=== PATIENT | male | born 1985 | race American Indian/Alaskan Native ===

== ENCOUNTER 2017-03-23 20:04 | Emergency (ER) | payer OTHER ==
[2017-03-23 20:04] VITALS: BMI 33.3
[2017-03-23 20:34] VITALS: TEMP 98.2
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
[2017-03-23] MEDS ORDERED: DiphenhydrAMINE 50 mg/ml Inj IM STA (22:39)
[2017-03-24 00:44] LABS: BASO # 0.06 K/mm3 (0.0-2.0); BASO % 0.8 % (0.0-3.0); EOS # 0.2 (0.0-0.7); GRAN # 4.6 (1.4-6.5); GRAN % 60.6 % (50.0-68.0); HEMATOCRIT 38.8 % (42.0-52.0); LYMPH # 2.1 (1.2-3.4); LYMPH % 28.2 % (22.0-35.0); MEAN CELL VOLUME 87.8 fl (80.0-105.0); MEAN CORPUSCULAR HEMOGLOBIN 29.6 pg (25.0-35.0); MEAN CORPUSCULAR HGB CONC 33.8 g/dl (31.0-37.0); MEAN PLATELET VOLUME 8.6 fl (7.0-11.0); MONO # 0.6 (0.1-0.6); MONO % 8.4 % (1.0-6.0); RED CELL DISTRIBUTION WIDTH 14.6 % (11.5-14.5)
[2017-03-24 00:49] LABS: ALB/GLOB RATIO 1.1 (1.1-1.8); ALKALINE PHOSPHATASE 81 U/L (38-126); ALT/SGPT 31 U/L (7-56); AST/SGOT 37 U/L (17-59); BILIRUBIN,TOTAL 0.7 mg/dL (0.2-1.3); BLOOD UREA NITROGEN 12 mg/dL (7-21); CALCIUM 9.1 mg/dL (8.4-10.5); CARBON DIOXIDE 29 mmol/L (21-33); CHLORIDE 102 mmol/L (95-110); GFR AFRICAN-AMERICAN > 60; GLUCOSE,RANDOM 79 mg/dL (70-110); POTASSIUM 3.4 mmol/L (3.6-5.0); SODIUM 139 mmol/L (132-148); TOTAL PROTEIN 7.4 g/dL (5.8-8.3)
[2017-03-24 00:50] LABS: WHITE BLOOD COUNT 7.6 10^3/ul (4.5-11.0)
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
--- NOTE | 2017-03-24 08:53 | RAD ---
HISTORY: med clearence COMPARISON: 07/15/2015 FINDINGS: LUNGS: No active pulmonary disease. PLEURA: No significant pleural effusion identified, no pneumothorax apparent. CARDIOVASCULAR: Normal. OSSEOUS STRUCTURES: No significant abnormalities. VISUALIZED UPPER ABDOMEN: Normal. OTHER FINDINGS: None. IMPRESSION: No active disease.
--- NOTE | 2017-03-24 09:13 | ED PDOC ---
Physical Exam Vital Signs Temp Pulse Resp BP Pulse Ox 03/24/17 06:59 74 99 H 114/80 100 03/24/17 00:04 78 99 H 108/78 100 03/23/17 20:29 98.2 F 72 18 126/64 99 Medical Decision Making ED Course and Treatment: 03/24/17 07:[address] Rodriguez to ma, and patient will follow-up with PES screening 03/24/17 13:35 Patient was evaluated by GRADY Gregorio who states she reviewed the case with the Psychiatrist and they agree that patient can be discharged in police custody. They have set her up with follow up with [facility]. - Lab Interpretations Lab Results: 03/24/17 00:14 03/24/17 00:14 Lab Results 03/24/17 00:14: Alcohol, Quantitative < 10 03/24/17 00:14: Salicylates < 1 L, Acetaminophen < 10.0 L 03/24/17 00:14: Sodium 139, Potassium 3.4 L, Chloride 102, Carbon Dioxide 29, Anion Gap 11, BUN 12, Creatinine 0.8, Est GFR ( Amer) > 60, Est GFR (Non- Af Amer) > 60, Random Glucose 79, Calcium 9.1, Total Bilirubin 0.7, AST 37, ALT 31, Alkaline Phosphatase 81, Total Protein 7.4, Albumin 3.9, Globulin 3.5, Albumin/Globulin Ratio 1.1 03/24/17 00:14: WBC 7.6 D, RBC 4.42, Hgb 13.1 L, Hct 38.8 L, MCV 87.8, MCH 29.6 , MCHC 33.8, RDW 14.6 H, Plt Count 305, MPV 8.6, Gran % 60.6, Lymph % (Auto) 28.2, [place] % (Auto) 8.4 H, Eos % (Auto) 2.0, Baso % (Auto) 0.8, Gran # 4.60, Lymph # 2.1, [place] # 0.6, Eos # 0.2, Baso # 0.06 - RAD Interpretation Radiology Orders: 03/23/17 21:15 HEAD W/O CONTRAST [CT] Stat 03/23/17 21:16 CHEST PORTABLE [RAD] Stat - Medication Orders Current Medication Orders: Discontinued Medications Diphenhydramine HCl (Benadryl) 50 mg IM STAT STA Stop: 03/23/17 22:40 Last Admin: 03/23/17 23:30 Dose: 50 mg Haloperidol Lactate (Haldol) 5 mg IM STAT STA Stop: 03/23/17 22:40 Last Admin: 03/23/17 23:30 Dose: 5 mg Lorazepam (Ativan) 2 mg IM ONCE ONE Stop: 03/23/17 22:40 Last Admin: 03/23/17 23:30 Dose: 2 mg Disposition/Present on Arrival - Present on Arrival Any Indicators Present on Arrival: No History of DVT/PE: No History of Uncontrolled Diabetes: No Urinary Catheter: No History of Decub. Ulcer: No History Surgical Site Infection Following: None - Disposition Have Diagnosis and Disposition been Completed?: Yes Diagnosis: Psychiatric care, Aggressive behavior Disposition: HOME/ ROUTINE Disposition Time: 13:30 Patient Plan: Discharge Condition: IMPROVED Discharge Instructions (ExitCare): Medical Clearance for Psychiatric Care (ED) Additional Instructions: Jef, thank you for letting us take care of you today. Your provider was Dr. Young. You were treated for Psych. The emergency medical care you received today was directed at your acute symptoms. If you were prescribed any medication, please fill it and take as directed. It may take several days for your symptoms to resolve. Return to the Emergency Department if your symptoms worsen, do not improve, or if you have any other problems. Please contact your doctor or call one of the physicians/clinics you have been referred to that are listed on the Patient Visit Information form that is included in your discharge packet. Bring any paperwork you were given at discharge with you along with any medications you are taking to your follow up visit. Our treatment cannot replace ongoing medical care by a primary care provider (PCP) outside of the emergency department. PATIENT IS MEDICALLY CLEARED FOR DISCHARGE WITH POLICE FOR INCARCERATION Thank you for allowing the [facility] team to be part of your care today. If you had an X-Ray or CT scan: A Radiologist will review the ED reading if any change in treatment is needed we will contact you. If you had a blood, urine, or wound culture: It will take several days for the results, if any change in treatment is needed we will contact you. If you had an STI test: It will take 48 hours for the results. Please call after 1 week if you have not heard back. Referrals: PCP,NO [Primary Care Provider] - Follow up with primary Forms: [employer] (Peruvian)
[2017-03-24 13:48] VITALS: BP 121/74; PULSE 54; RESP 16; O2SAT 98
== END 2017-03-24 13:35 | disposition home or self-care (01) ==
LOC: ED 20:04
DX: F91.9 Conduct disorder, unspecified (principal)
CPT/HCPCS: 70450; 71010; 80053; 85025; 90791; 96372; 99284; G0480; J1200; J1630; J2060

== ENCOUNTER 2017-10-16 17:46 | Emergency (ER) | payer MEDICAID, OTHER ==
[2017-10-16] MEDS ORDERED: Tmp-Smz 800 mg-160 mg DS Tab PO STA (18:08)
--- NOTE | 2017-10-16 18:16 | ED PDOC ---
Arrival/HPI - General Chief Complaint: Wound Check Time Seen by Provider: 10/16/17 17:53 Historian: Patient EM Caveat: Uncooperative, Psychotic - History of Present Illness Narrative History of Present Illness (Text): 10/16/17 18:12 Patient is a 32 year old male, with a past psychiatric history of schizophrenia and homeless, who presents today with "a hole in his head". Pt is not a good historian and is known to be very uncooperative and aggressive with ER staff. Pt states he just wants relief for the painful bumps on his head. Denies fever, chest pain, shortness of breath, nausea, vomiting, diarrhea, or any other complaints at this time Time/Duration: Prior to Arrival Symptom Onset: Gradual Symptom Course: Unchanged Quality: Pressure Severity Level: 5 Activities at Onset: Rest Context: Street Past Medical History - Provider Review Nursing Documentation Reviewed: Yes - Travel History Have you recently traveled outside [place] w/in the past 3 mons?: No - Infectious Disease Hx of Infectious Diseases: None - Cardiac Hx Hypertension: No - Pulmonary Hx Tuberculosis: No - Neurological Hx Seizures: No - Hematological/Oncological Hx Cancer: No - Genitourinary/Gynecological Hx Sexually Transmitted Diseases: No - Psychiatric Hx Schizophrenia: Yes Hx Substance Use: No - Surgical History Other/Comment: STITCHES ON NOSE/ HEAD - DONT REMEMBER ANY SUGERY - Anesthesia Hx Anesthesia: Yes Hx Anesthesia Reactions: No Hx Malignant Hyperthermia: No Family/Social History - Physician Review Nursing Documentation Reviewed: Yes Family/Social History: Unknown Family HX Smoking Status: Current Some Days Smoker Hx Alcohol Use: Yes Hx Substance Use: No Allergies/Home Meds Allergies/Adverse Reactions: Allergies No Known Allergies Allergy (Verified 10/13/17 23:09) Review of Systems - Review of Systems Constitutional: Normal Eyes: Normal ENT: Normal Respiratory: Normal Cardiovascular: Normal Gastrointestinal: Normal Genitourinary Male: Normal Musculoskeletal: Normal Skin: Normal, Skin Lesions (multiple cysts on the scalp) Neurological: Normal Endocrine: Normal Hemo/Lymphatic: Normal Psychiatric: Normal Physical Exam Vital Signs Reviewed: Yes Vital Signs Temp Pulse Resp BP Pulse Ox 10/16/17 19:40 98.9 F 95 H 18 152/78 H 98 10/16/17 18:01 99.3 F 98 H 18 149/82 99 Temperature: Afebrile Blood Pressure: Normal Pulse: Regular Respiratory Rate: Normal Appearance: Positive for: Non-Toxic, Comfortable, Unkept Pain Distress: Moderate Mental Status: Positive for: Alert and Oriented X 3 - Systems Exam Head: Present: Atraumatic, Normocephalic, Tenderness (multiple scalp cysts, varying in size) Pupils: Present: PERRL Extroacular Muscles: Present: EOMI Conjunctiva: Present: Normal Mouth: Present: Moist Mucous Membranes Neck: Present: Normal Range of Motion Respiratory/Chest: Present: Clear to Auscultation, Good Air Exchange. No: Respiratory Distress, Accessory Muscle Use Cardiovascular: Present: Regular Rate and Rhythm, Normal S1, S2. No: Murmurs Abdomen: Present: Normal Bowel Sounds. No: Tenderness, Distention, Peritoneal Signs Back: Present: Normal Inspection Upper Extremity: Present: Normal Inspection. No: Cyanosis, Edema Lower Extremity: Present: Normal Inspection. No: Edema Neurological: Present: GCS=15, CN II-XII Intact, Speech Normal, Motor Func Grossly Intact, Normal Sensory Function Skin: Present: Warm, Dry, Normal Color, Abscess (multiple scalp lesions; non- fluctuant but tender to palpation). No: Rashes Lymphatic: No: Cervical Adenopathy, Axillary Adenopathy, Inguinal Adenopathy, Other Psychiatric: Present: Alert, Oriented x 3, Normal Insight, Normal Concentration , Normal Affect, Normal Mood, Agitated Medical Decision Making ED Course and Treatment: 10/16/17 18:16 Impression Patient is a 32 year old male, with a past psychiatric history of schizophrenia , who presents today with "a hole in his head". On exam, there are multiple cysts, non-fluctuant on the scalp with moderate- severe pain on palpation. Pt is unkempt and uncooperative and demanding during exam Plan Bactrim DS PO STAT pain management assess and dispo Progress Note Pt received Bactrim DS PO STAT Toradol 60 mg IM Pt rested and was stable for DC Bactrim DS PO x 5 days given - Medication Orders Current Medication Orders: Discontinued Medications Ketorolac Tromethamine (Toradol) 30 mg IM STAT STA Stop: 10/16/17 18:22 Last Admin: 10/16/17 18:34 Dose: Ketorolac Tromethamine (Toradol) 30 mg IM STAT STA Stop: 10/16/17 18:36 Last Admin: 10/16/17 18:42 Dose: Not Given Non-Admin Reason: Patient Refused Trimethoprim/Sulfamethoxazole (Bactrim Ds Tab) 1 tab PO STAT STA PRN Reason: Protocol Stop: 10/16/17 18:09 Last Admin: 10/16/17 18:41 Dose: 1 tab Disposition/Present on Arrival - Present on Arrival Any Indicators Present on Arrival: Yes History of DVT/PE: No History of Uncontrolled Diabetes: No Urinary Catheter: No History of Decub. Ulcer: No History Surgical Site Infection Following: None - Disposition Have Diagnosis and Disposition been Completed?: Yes Diagnosis: Scalp abscess Disposition: HOME/ ROUTINE Disposition Time: 18:41 Patient Plan: Discharge Condition: STABLE Discharge Instructions (ExitCare): Boil Additional Instructions: Efrain, thank you for letting us take care of you today. Your provider was BENNIE Redmond. You were treated for multiple scalp abscesses. The emergency medical care you received today was directed at your acute symptoms. If you were prescribed any medication, please fill it and take as directed. It may take several days for your symptoms to resolve. Return to the Emergency Department if your symptoms worsen, do not improve, or if you have any other problems. Please contact your doctor or call one of the physicians/clinics you have been referred to that are listed on the Patient Visit Information form that is included in your discharge packet. Bring any paperwork you were given at discharge with you along with any medications you are taking to your follow up visit. Our treatment cannot replace ongoing medical care by a primary care provider (PCP) outside of the emergency department. [facility] care today. Prescriptions: Sulfamethoxazole/Trimethoprim [Bactrim DS 800 mg-160 mg] 1 tab PO Q12 5 Days # 10 tab Referrals: Elmira Celis, [Primary Care Provider] - Follow up with primary [facility] [Outside] - Follow up with primary Forms: [employer] (Kyrgyz)
[2017-10-16 18:23] VITALS: RESP 18; BMI 30.9
[2017-10-16 19:41] VITALS: BP 152/78; PULSE 95; TEMP 98.9; O2SAT 98
== END 2017-10-16 19:41 | disposition home or self-care (01) ==
LOC: ED 17:46
DX: L02.811 Cutaneous abscess of head [any part, except face] (principal)

== ENCOUNTER 2017-11-15 13:16 | Emergency (ER) | payer MEDICAID, OTHER ==
[2017-11-15 13:17] VITALS: BMI 33.3
--- NOTE | 2017-11-15 14:11 | ED PDOC ---
Arrival/HPI - General Chief Complaint: Psychiatric Evaluation Time Seen by Provider: 11/15/17 14:06 Historian: Patient, Police - History of Present Illness Narrative History of Present Illness (Text): 11/15/17 14:09 pt p/w + altered behavior, was found wandering in the streets and taking his cloths off; pt states he was just walking back to the half-way?; pt Denied SI/HI , pt denied hallucinations - visual/tactile/auditory; pt states he is just very tired/fatigued; pt states he is weak; pt states no fever/chills/sweats, no cp/ sob/palpitations, no abd pain, no n/v, no numbness/tingling, no urinary/bowel changes, no fall/trauma/sick contact, no shock absorption floor layer denied other complaints pt is here for further eval. PCP: unknown?none? pt with prior psych hx Time/Duration: Prior to Arrival Symptom Onset: Sudden Symptom Course: Unchanged Activities at Onset: Rest Context: Walking Past Medical History - Provider Review Nursing Documentation Reviewed: Yes - Travel History Have you recently traveled outside [place] w/in the past 3 mons?: No - Past History Past History: No Previous - Infectious Disease Hx of Infectious Diseases: None - Tetanus Immunization Tetanus Immunization: Unknown - Cardiac Hx Cardiac Disorders: No - Pulmonary Hx Tuberculosis: No - Neurological Hx Seizures: No - Hematological/Oncological Hx Cancer: No - Genitourinary/Gynecological Hx Sexually Transmitted Diseases: No - Psychiatric Hx Schizophrenia: Yes Hx Substance Use: No - Surgical History Other/Comment: STITCHES ON NOSE/ HEAD - DONT REMEMBER ANY SUGERY - Anesthesia Hx Anesthesia: Yes Hx Anesthesia Reactions: No Hx Malignant Hyperthermia: No Family/Social History - Physician Review Nursing Documentation Reviewed: Yes Family/Social History: No Known Family HX Smoking Status: Former Smoker Hx Alcohol Use: No Hx Substance Use: No Hx Substance Use Treatment: No Allergies/Home Meds Allergies/Adverse Reactions: Allergies No Known Allergies Allergy (Verified 11/15/17 13:21) Home Medications: Home Meds Medication Instructions Recorded Confirmed No Known Home Med 11/15/17 11/15/17 Review of Systems - Review of Systems Constitutional: Fatigue. absent: Fevers Eyes: Normal ENT: Normal Respiratory: Cough. absent: SOB, Sputum, Wheezing Cardiovascular: Normal. absent: Chest Pain Gastrointestinal: Normal. absent: Abdominal Pain Genitourinary Male: Normal Musculoskeletal: Normal Skin: Normal. absent: Rash Neurological: Normal. absent: Headache Endocrine: Normal Hemo/Lymphatic: Normal Psychiatric: Other (tired, sleepy). absent: Anxiety, Depression, Suicidal Ideation Physical Exam Vital Signs Reviewed: Yes Vital Signs Temp Pulse Resp BP Pulse Ox 11/15/17 16:01 98.2 F 72 18 142/81 99 11/15/17 13:44 989.2 F H 69 17 145/76 98 Temperature: Afebrile Blood Pressure: Hypertensive Pulse: Regular Respiratory Rate: Normal Appearance: Positive for: Well-Appearing, Non-Toxic, Comfortable, Other ( resting in bed, at times active dry coughing is noted, alert/awake, GCS = 15, oriented x2 (not to date/time), cooperative, NAD; follows command with ease) Pain Distress: None Mental Status: Positive for: other (alert/awake, oriented x 2). No: Confused, Agitated - Systems Exam Head: Present: Atraumatic, Normocephalic Pupils: Present: PERRL, Other (no nystagmus, no photophobia, sclera anicteric, visual field intact b/l) Extroacular Muscles: Present: EOMI Conjunctiva: Present: Normal Ears: Present: Normal Mouth: Present: Moist Mucous Membranes, Other (fair dentitions, no drooling/ stridor, no exudate/lesions, uvula/tongue are midline) Pharnyx: Present: Normal Nose (External): Present: Atraumatic Nose (Internal): Present: Normal Inspection. No: No Active Bleeding Neck: Present: Normal Range of Motion, Trachea Midline, Other (intact ROM, no midline tenderness, no step off, no nuchal rigidity). No: Meningeal Signs, MIDLINE TENDERNESS, Paraspinal Tenderness Respiratory/Chest: Present: Clear to Auscultation, Good Air Exchange, Other ( coarse breath sounds bibasiliar, no w/r/r, no tachypenia). No: Respiratory Distress, Accessory Muscle Use, Wheezes Cardiovascular: Present: Regular Rate and Rhythm, Normal S1, S2. No: Murmurs Abdomen: Present: Normal Bowel Sounds, Other (well nourished male, no focal tenderness, no masses/rebound/guarding/rigidity, no yeager's sign, no mcburney' s point tenderness) Back: Present: Normal Inspection. No: CVA Tenderness, Midline Tenderness Upper Extremity: Present: Normal Inspection, Normal ROM, NORMAL PULSES, Neurovascularly Intact, Capillary Refill < 2s, Other (strength 5/5 grossly intact b/l) Lower Extremity: Present: Normal Inspection, NORMAL PULSES, Normal ROM, Neurovascularly Intact, Capillary Refill < 2 s, Other (strength 5/5 grossly intact b/l) Neurological: Present: GCS=15, CN II-XII Intact, Speech Normal Skin: Present: Warm, Normal Color, Other (cap refill < 1sec, no ulcerations, no petechiae, no rashes) Psychiatric: Present: Alert, Other (FLAT AFFECT, cooperative). No: Suicidal Ideation, Homicidal Ideation Medical Decision Making ED Course and Treatment: 11/15/17 14:11 Impression: altered behavior i have consider all the differential diagnosis regarding pt's chief medical complaints/clinical findings, including but are not limited to: altered behavior A/P: altered behavior, psych eval - labs - medical screening exam - supportive care - observe/reevaluation 2:25pm - pt is medically cleared for psych eval 440pm - pt was evaluated by PES/crisis counselor, pt is signed in for further psych eval but Dr Young did not like pt's signature and would like a screener to evaluate patient currently awaiting [facility] screener 2130 pt is not in any distress pt is resting in bed pt had intermittently behaved oddly/uncooperatively: i/e pt would rock his body and be laying on his abd, would not respond and would not speak; pt also had tried to masturbate in front of female staff members, pt also has been trying to spit in his exam room 11/15/17 23:00 pt is endorsed to Dr richter, overnight ED attending, pt is awaiting [facility] screener and pending final disposition, pt can be dispositioned accordingly Re-evaluation Time: 14:34 Reassessment Condition: Unchanged - Lab Interpretations Lab Results: 11/15/17 14:14 11/15/17 14:14 Lab Results 11/15/17 16:56: Urine Opiates Screen Negative, Urine Methadone Screen Negative, Ur Barbiturates Screen Negative, Ur Phencyclidine Scrn Positive H, Ur Amphetamines Screen Negative, U Benzodiazepines Scrn Negative, U Oth Cocaine Metabols Negative, U Cannabinoids Screen Negative 11/15/17 16:56: Urine Color Yellow, Urine Appearance Clear, Urine pH 6.0, Ur Specific [place] >= 1.030, Urine Protein Negative, Urine Glucose (UA) Negative, Urine Ketones Negative, Urine Blood Negative, Urine Nitrate Negative, Urine Bilirubin Negative, Urine Urobilinogen 0.2, Ur Leukocyte Esterase Negative 11/15/17 14:14: Alcohol, Quantitative < 10 11/15/17 14:14: Salicylates < 1 L, Acetaminophen < 10.0 L 11/15/17 14:14: Sodium 147, Potassium 3.9, Chloride 107, Carbon Dioxide 29, Anion Gap 15, BUN 14, Creatinine 0.9, Est GFR ( Amer) > 60, Est GFR (Non- Af Amer) > 60, Random Glucose 97, Calcium 8.8, Magnesium 2.5 H, Total Bilirubin < 0.1 L, AST 26, ALT 27, Alkaline Phosphatase 98, Total Protein 8.0, Albumin 4.0 , Globulin 4.0, Albumin/Globulin Ratio 1.0 L 11/15/17 14:14: WBC 13.0 H D, RBC 4.77, Hgb 13.4 L, Hct 40.5 L, MCV 84.9, MCH 28.1, MCHC 33.1, RDW 15.0 H, Plt Count 387, MPV 8.4, Gran % 73.4 H, Lymph % ( Auto) 16.8 L, [place] % (Auto) 6.2 H, Eos % (Auto) 3.1, Baso % (Auto) 0.5, Gran # 9.58 H, Lymph # (Auto) 2.2, [place] # (Auto) 0.8 H, Eos # (Auto) 0.4, Baso # (Auto ) 0.06 I have reviewed the lab results: Yes Interpretation: Abnormal lab values (slight elevated WBCs) - RAD Interpretation Narrative RAD Interpretations (Text): 11/15/17 14:33 hypoinflated lung abreu, otherwise NAD 11/15/17 14:56 Chest X-ray reviewed, shows: LUNGS: No active pulmonary disease. PLEURA: No significant pleural effusion identified, no pneumothorax apparent. CARDIOVASCULAR: Normal. OSSEOUS STRUCTURES: No significant abnormalities. VISUALIZED UPPER ABDOMEN: Normal. OTHER FINDINGS: None. IMPRESSION: No active disease. Radiology Orders: 11/15/17 14:07 CHEST PORTABLE [RAD] Stat Supervisory Civil Engineer: ED Physician - EKG Interpretation EKG Interpretation (Text): 11/15/17 14:12 NSR at 75 bpm, normal axis, no ectopy, inverted T in leads III, no st changes, otherwise NORMAL EKG; unchanged compare with old ekg 07/2015 Interpreted by ED Physician: Yes Type: 12 lead EKG Comparison: Similar to previous EKG - Medication Orders Current Medication Orders: Discontinued Medications Albuterol/Ipratropium (Duoneb 3 Mg/0.5 Mg (3 Ml) Ud) 3 ml IH STAT STA Stop: 11/15/17 14:36 Last Admin: 11/15/17 14:43 Dose: 3 ml Guaifenesin/Dextromethorphan (Robitussin Dm) 10 ml PO ONCE ONE Stop: 11/15/17 14:36 Last Admin: 11/15/17 14:43 Dose: 10 ml - Transfer of Care Patient signed out to Dr:: Michael Other: awaiting [facility] screener and final disposition Disposition/Present on Arrival - Present on Arrival Any Indicators Present on Arrival: No History of DVT/PE: No History of Uncontrolled Diabetes: No Urinary Catheter: No History of Decub. Ulcer: No History Surgical Site Infection Following: None - Disposition Have Diagnosis and Disposition been Completed?: Yes Diagnosis: Behavior disorder, Homeless, Schizoaffective disorder Disposition Time: 23:00 (transferred to Dr Richter) Patient Problems: Current Active Problems Problem Status Onset Behavior disorder Acute Homeless Acute Schizoaffective disorder Acute Condition: STABLE Print Language: TRISTANIAN Referrals: Viadeo Jenny Remargarita, [Primary Care Provider] - Follow up with primary Forms: [employer] (Tajik)
[2017-11-15 14:18] LABS: BASO # 0.06 K/mm3 (0.0-2.0); BASO % 0.5 % (0.0-3.0); EOS # 0.4 (0.0-0.7); EOS % 3.1 % (1.5-5.0); GRAN # 9.58 (1.4-6.5); GRAN % 73.4 % (50.0-68.0); HEMOGLOBIN 13.4 g/dL (14.0-18.0); LYMPH # 2.2 (1.2-3.4); LYMPH % 16.8 % (22.0-35.0); MEAN CELL VOLUME 84.9 fl (80.0-105.0); MEAN CORPUSCULAR HEMOGLOBIN 28.1 pg (25.0-35.0); MEAN CORPUSCULAR HGB CONC 33.1 g/dl (31.0-37.0); MEAN PLATELET VOLUME 8.4 fl (7.0-11.0); MONO # 0.8 (0.1-0.6); MONO % 6.2 % (1.0-6.0); RBC 4.77 10^6/uL (3.5-6.1)
[2017-11-15 14:28] LABS: ALT/SGPT 27 U/L (7-56); AST/SGOT 26 U/L (17-59); BLOOD UREA NITROGEN 14 mg/dL (7-21); CALCIUM 8.8 mg/dL (8.4-10.5); GFR AFRICAN-AMERICAN > 60; GFR NON-AFRICAN AMERICAN > 60
[2017-11-15 14:29] LABS: ACETAMINOPHEN < 10.0 ug/ml (10.0-20.0); SALICYLATE < 1 mg/dL (2.0-20.0)
[2017-11-15] MEDS ORDERED: Albuterol-Ipratrop 3 mg / 0.5 (3 ml) UD IH STA (14:35)
[2017-11-15] MEDS ORDERED: guaiFENesin DM 200 mg-20 mg/10 ml UD PO ONE (14:35)
--- NOTE | 2017-11-15 14:46 | RAD ---
HISTORY: medical screening COMPARISON: No prior. FINDINGS: LUNGS: No active pulmonary disease. PLEURA: No significant pleural effusion identified, no pneumothorax apparent. CARDIOVASCULAR: Normal. OSSEOUS STRUCTURES: No significant abnormalities. VISUALIZED UPPER ABDOMEN: Normal. OTHER FINDINGS: None. IMPRESSION: No active disease.
--- NOTE | 2017-11-15 15:23 | CARD ---
APPROVED REPORT EKG Measurement Heart [id number] <Conclusion> Normal sinus rhythm with sinus arrhythmia Normal ECG
[2017-11-15 17:10] LABS: URINE BILIRUBIN NEGATIVE (NEGATIVE); URINE BLOOD NEGATIVE (NEGATIVE); URINE GLUCOSE (UA) NEGATIVE (NEGATIVE); URINE LEUKOCYTE ESTERASE NEGATIVE Leu/uL (NEGATIVE); URINE UROBILINOGEN 0.2 E.U./dL (<1 E.U./dL)
[2017-11-15 17:15] LABS: URINE APPEARANCE CLEAR (CLEAR); URINE COLOR YELLOW (YELLOW); URINE PROTEIN NEGATIVE mg/dL (<30 mg/dL)
[2017-11-15 17:33] LABS: BARBITURATES, UR NEGATIVE (NEGATIVE); BENZODIAZEPINES, UR NEGATIVE (NEGATIVE); OPIATES, UR NEGATIVE (NEGATIVE); PHENCYCLIDINE, UR POSITIVE (NEGATIVE)
--- NOTE | 2017-11-16 01:04 | ED PDOC ---
Physical Exam Vital Signs Temp Pulse Resp BP Pulse Ox 11/16/17 02:54 82 18 137/82 99 11/15/17 19:05 78 16 148/69 100 11/15/17 16:01 98.2 F 72 18 142/81 99 11/15/17 13:44 989.2 F H 69 17 145/76 98 Finger Stick Blood Glucose: 96 Medical Decision Making ED Course and Treatment: 11/15/17 23:00 Case endorsed to me by Dr. Frey, pending [facility] PES screening and disposition. 11/16/17 04:43 Pt seen and evaluated by PES screener Dave, who discussed case with psychiatrist child development consultant, Dr. Espino. Requesting [facility] PES screen. States [facility] screeners will come in during next shift. 11/16/17 07:[address] Stevens, pending [facility] P[facility] screen and disposition. - Lab Interpretations Lab Results: 11/15/17 14:14 11/15/17 14:14 Lab Results 11/15/17 16:56: Urine Opiates Screen Negative, Urine Methadone Screen Negative, Ur Barbiturates Screen Negative, Ur Phencyclidine Scrn Positive H, Ur Amphetamines Screen Negative, U Benzodiazepines Scrn Negative, U Oth Cocaine Metabols Negative, U Cannabinoids Screen Negative 11/15/17 16:56: Urine Color Yellow, Urine Appearance Clear, Urine pH 6.0, Ur Specific [place] >= 1.030, Urine Protein Negative, Urine Glucose (UA) Negative, Urine Ketones Negative, Urine Blood Negative, Urine Nitrate Negative, Urine Bilirubin Negative, Urine Urobilinogen 0.2, Ur Leukocyte Esterase Negative 11/15/17 14:14: Alcohol, Quantitative < 10 11/15/17 14:14: Salicylates < 1 L, Acetaminophen < 10.0 L 11/15/17 14:14: Sodium 147, Potassium 3.9, Chloride 107, Carbon Dioxide 29, Anion Gap 15, BUN 14, Creatinine 0.9, Est GFR ( Amer) > 60, Est GFR (Non- Af Amer) > 60, Random Glucose 97, Calcium 8.8, Magnesium 2.5 H, Total Bilirubin < 0.1 L, AST 26, ALT 27, Alkaline Phosphatase 98, Total Protein 8.0, Albumin 4.0 , Globulin 4.0, Albumin/Globulin Ratio 1.0 L 11/15/17 14:14: WBC 13.0 H D, RBC 4.77, Hgb 13.4 L, Hct 40.5 L, MCV 84.9, MCH 28.1, MCHC 33.1, RDW 15.0 H, Plt Count 387, MPV 8.4, Gran % 73.4 H, Lymph % ( Auto) 16.8 L, [place] % (Auto) 6.2 H, Eos % (Auto) 3.1, Baso % (Auto) 0.5, Gran # 9.58 H, Lymph # (Auto) 2.2, [place] # (Auto) 0.8 H, Eos # (Auto) 0.4, Baso # (Auto ) 0.06 - RAD Interpretation Radiology Orders: 11/15/17 14:07 CHEST PORTABLE [RAD] Stat - Medication Orders Current Medication Orders: Discontinued Medications Albuterol/Ipratropium (Duoneb 3 Mg/0.5 Mg (3 Ml) Ud) 3 ml IH STAT STA Stop: 11/15/17 14:36 Last Admin: 11/15/17 14:43 Dose: 3 ml Guaifenesin/Dextromethorphan (Robitussin Dm) 10 ml PO ONCE ONE Stop: 11/15/17 14:36 Last Admin: 11/15/17 14:43 Dose: 10 ml Disposition/Present on Arrival - Present on Arrival Any Indicators Present on Arrival: No History of DVT/PE: No History of Uncontrolled Diabetes: No Urinary Catheter: No History of Decub. Ulcer: No History Surgical Site Infection Following: None - Disposition Have Diagnosis and Disposition been Completed?: No Diagnosis: Behavior disorder, Homeless, Schizoaffective disorder Disposition Time: 07:00 Patient Problems: Current Active Problems Problem Status Onset Behavior disorder Acute Homeless Acute Schizoaffective disorder Acute Condition: STABLE Print Language: SAMOAN Referrals: MyTrainer Jenny Req, [Primary Care Provider] - Follow up with primary Forms: [employer] (Bangladeshi)
--- NOTE | 2017-11-16 07:08 | ED PDOC ---
Physical Exam Vital Signs Temp Pulse Resp BP Pulse Ox 11/16/17 12:50 66 18 112/77 98 11/16/17 11:00 60 16 117/62 99 11/16/17 08:00 98.2 F 80 18 119/77 99 11/16/17 06:03 88 16 129/80 98 11/16/17 02:54 82 18 137/82 99 11/15/17 19:05 78 16 148/69 100 11/15/17 16:01 98.2 F 72 18 142/81 99 11/15/17 13:44 989.2 F H 69 17 145/76 98 Finger Stick Blood Glucose: 96 Medical Decision Making ED Course and Treatment: 11/16/17 07:00 Case signed out to me by Dr. Rodriguez. Patient is a 32 year old male, who presented to the emergency department due to being found with altered behavior, by wandering in the streets and taking his cloths off; pt denied SI/HI. Currently pending screening from [facility]. 11/16/17 13:30 Patient has been accepted to [facility] but they have reported to not having any beds at the moment. 11/16/17 18:50 Patient's temperature normal for entire stay in ED. - Lab Interpretations Lab Results: 11/15/17 14:14 11/15/17 14:14 Lab Results 11/15/17 16:56: Urine Opiates Screen Negative, Urine Methadone Screen Negative, Ur Barbiturates Screen Negative, Ur Phencyclidine Scrn Positive H, Ur Amphetamines Screen Negative, U Benzodiazepines Scrn Negative, U Oth Cocaine Metabols Negative, U Cannabinoids Screen Negative 11/15/17 16:56: Urine Color Yellow, Urine Appearance Clear, Urine pH 6.0, Ur Specific [place] >= 1.030, Urine Protein Negative, Urine Glucose (UA) Negative, Urine Ketones Negative, Urine Blood Negative, Urine Nitrate Negative, Urine Bilirubin Negative, Urine Urobilinogen 0.2, Ur Leukocyte Esterase Negative 11/15/17 14:14: Alcohol, Quantitative < 10 11/15/17 14:14: Salicylates < 1 L, Acetaminophen < 10.0 L 11/15/17 14:14: Sodium 147, Potassium 3.9, Chloride 107, Carbon Dioxide 29, Anion Gap 15, BUN 14, Creatinine 0.9, Est GFR ( Amer) > 60, Est GFR (Non- Af Amer) > 60, Random Glucose 97, Calcium 8.8, Magnesium 2.5 H, Total Bilirubin < 0.1 L, AST 26, ALT 27, Alkaline Phosphatase 98, Total Protein 8.0, Albumin 4.0 , Globulin 4.0, Albumin/Globulin Ratio 1.0 L 11/15/17 14:14: WBC 13.0 H D, RBC 4.77, Hgb 13.4 L, Hct 40.5 L, MCV 84.9, MCH 28.1, MCHC 33.1, RDW 15.0 H, Plt Count 387, MPV 8.4, Gran % 73.4 H, Lymph % ( Auto) 16.8 L, [place] % (Auto) 6.2 H, Eos % (Auto) 3.1, Baso % (Auto) 0.5, Gran # 9.58 H, Lymph # (Auto) 2.2, [place] # (Auto) 0.8 H, Eos # (Auto) 0.4, Baso # (Auto ) 0.06 - RAD Interpretation Radiology Orders: 11/15/17 14:07 CHEST PORTABLE [RAD] Stat - Medication Orders Current Medication Orders: Discontinued Medications Albuterol/Ipratropium (Duoneb 3 Mg/0.5 Mg (3 Ml) Ud) 3 ml IH STAT STA Stop: 11/15/17 14:36 Last Admin: 11/15/17 14:43 Dose: 3 ml Guaifenesin/Dextromethorphan (Robitussin Dm) 10 ml PO ONCE ONE Stop: 11/15/17 14:36 Last Admin: 11/15/17 14:43 Dose: 10 ml - Transfer of Care Patient signed out to Dr:: Michael Other: [facility] transfer - Scribe Statement The provider has reviewed the documentation as recorded by the Eriberto[employer]avtar Berry Provider Scribe Attestation: All medical record entries made by the Scribe were at my direction and personally dictated by me. I have reviewed the chart and agree that the record accurately reflects my personal performance of the history, physical exam, medical decision making, and the department course for this patient. I have also personally directed, reviewed, and agree with the discharge instructions and disposition. Disposition/Present on Arrival - Present on Arrival Any Indicators Present on Arrival: No History of DVT/PE: No History of Uncontrolled Diabetes: No Urinary Catheter: No History of Decub. Ulcer: No History Surgical Site Infection Following: None - Disposition Have Diagnosis and Disposition been Completed?: Yes Diagnosis: Behavior disorder, Homeless, Schizoaffective disorder Disposition Time: 19:00 Patient Problems: Current Active Problems Problem Status Onset Behavior disorder Acute Homeless Acute Schizoaffective disorder Acute Condition: STABLE Print Language: SETSWANA Referrals: [facility] Profile Req, [Non-Staff] - Follow up with primary Forms: [employer] (Lao)
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
--- NOTE | 2017-11-17 07:21 | ED PDOC ---
Physical Exam - Physical Exam Narrative Physical Exam (Text): 11/16/17 07:20 Pt. reendorsed to me from .Hx. schizoaffective/behavioural disorder accepted [place] [facility]No beds available at this time.Pt. currently resting comfortably. Vital Signs Temp Pulse Resp BP Pulse Ox 11/16/17 22:49 65 18 126/75 96 11/16/17 18:45 69 18 116/68 96 11/16/17 14:30 72 18 117/71 99 11/16/17 12:50 66 18 112/77 98 11/16/17 11:00 60 16 117/62 99 11/16/17 08:00 98.2 F 80 18 119/77 99 11/16/17 06:03 88 16 129/80 98 11/16/17 02:54 82 18 137/82 99 11/15/17 19:05 78 16 148/69 100 11/15/17 16:01 98.2 F 72 18 142/81 99 11/15/17 13:44 989.2 F H 69 17 145/76 98 Finger Stick Blood Glucose: 96 Medical Decision Making ED Course and Treatment: 11/17/17 07:15 Pt. resting comfortably. - Lab Interpretations Lab Results: 11/15/17 14:14 11/15/17 14:14 Lab Results 11/15/17 16:56: Urine Opiates Screen Negative, Urine Methadone Screen Negative, Ur Barbiturates Screen Negative, Ur Phencyclidine Scrn Positive H, Ur Amphetamines Screen Negative, U Benzodiazepines Scrn Negative, U Oth Cocaine Metabols Negative, U Cannabinoids Screen Negative 11/15/17 16:56: Urine Color Yellow, Urine Appearance Clear, Urine pH 6.0, Ur Specific [place] >= 1.030, Urine Protein Negative, Urine Glucose (UA) Negative, Urine Ketones Negative, Urine Blood Negative, Urine Nitrate Negative, Urine Bilirubin Negative, Urine Urobilinogen 0.2, Ur Leukocyte Esterase Negative 11/15/17 14:14: Alcohol, Quantitative < 10 11/15/17 14:14: Salicylates < 1 L, Acetaminophen < 10.0 L 11/15/17 14:14: Sodium 147, Potassium 3.9, Chloride 107, Carbon Dioxide 29, Anion Gap 15, BUN 14, Creatinine 0.9, Est GFR ( Amer) > 60, Est GFR (Non- Af Amer) > 60, Random Glucose 97, Calcium 8.8, Magnesium 2.5 H, Total Bilirubin < 0.1 L, AST 26, ALT 27, Alkaline Phosphatase 98, Total Protein 8.0, Albumin 4.0 , Globulin 4.0, Albumin/Globulin Ratio 1.0 L 11/15/17 14:14: WBC 13.0 H D, RBC 4.77, Hgb 13.4 L, Hct 40.5 L, MCV 84.9, MCH 28.1, MCHC 33.1, RDW 15.0 H, Plt Count 387, MPV 8.4, Gran % 73.4 H, Lymph % ( Auto) 16.8 L, [place] % (Auto) 6.2 H, Eos % (Auto) 3.1, Baso % (Auto) 0.5, Gran # 9.58 H, Lymph # (Auto) 2.2, [place] # (Auto) 0.8 H, Eos # (Auto) 0.4, Baso # (Auto ) 0.06 - RAD Interpretation Radiology Orders: 11/15/17 14:07 CHEST PORTABLE [RAD] Stat - Medication Orders Current Medication Orders: Discontinued Medications Albuterol/Ipratropium (Duoneb 3 Mg/0.5 Mg (3 Ml) Ud) 3 ml IH STAT STA Stop: 11/15/17 14:36 Last Admin: 11/15/17 14:43 Dose: 3 ml Guaifenesin/Dextromethorphan (Robitussin Dm) 10 ml PO ONCE ONE Stop: 11/15/17 14:36 Last Admin: 11/15/17 14:43 Dose: 10 ml Haloperidol Lactate (Haldol) 5 mg IM STAT STA PRN Reason: Protocol Stop: 11/16/17 14:35 Last Admin: 11/16/17 14:46 Dose: 5 mg IM Administration Charges Document 11/16/17 14:46 TAMMY (Rec: 11/16/17 14:46 TAMMY [id number]) Injection Site MAR Injection Site Right Deltoid Charges for Administration # of IM Administrations 1 Lorazepam (Ativan) 2 mg IM STAT STA PRN Reason: Protocol Stop: 11/16/17 14:36 Last Admin: 11/16/17 14:46 Dose: 2 mg IM Administration Charges Document 11/16/17 14:46 TAMMY (Rec: 11/16/17 14:46 TAMMY [id number]) Injection Site MAR Injection Site Left Deltoid Charges for Administration # of IM Administrations 1 - Transfer of Care Patient signed out to Dr:: Simran Other: Pending bed availability [place] [facility] Disposition/Present on Arrival - Present on Arrival Any Indicators Present on Arrival: No History of DVT/PE: No History of Uncontrolled Diabetes: No Urinary Catheter: No History of Decub. Ulcer: No History Surgical Site Infection Following: None - Disposition Have Diagnosis and Disposition been Completed?: No Diagnosis: Behavior disorder, Homeless, Schizoaffective disorder Disposition Time: 07:23 Patient Problems: Current Active Problems Problem Status Onset Behavior disorder Acute Homeless Acute Schizoaffective disorder Acute Condition: STABLE Print Language: DIVEHI Referrals: [employer] Profile Req, [Non-Staff] - Follow up with primary Forms: [employer] (Welsh)
--- NOTE | 2017-11-17 07:37 | ED PDOC ---
Physical Exam Vital Signs Temp Pulse Resp BP Pulse Ox 11/17/17 11:00 98.3 F 74 18 132/76 96 11/17/17 09:00 98 F 80 16 128/79 97 11/17/17 06:49 72 18 125/76 98 11/17/17 03:49 70 17 114/68 98 11/17/17 00:49 68 17 120/70 98 11/16/17 22:49 65 18 126/75 96 11/16/17 18:45 69 18 116/68 96 11/16/17 14:30 72 18 117/71 99 11/16/17 12:50 66 18 112/77 98 11/16/17 11:00 60 16 117/62 99 11/16/17 08:00 98.2 F 80 18 119/77 99 11/16/17 06:03 88 16 129/80 98 11/16/17 02:54 82 18 137/82 99 11/15/17 19:05 78 16 148/69 100 11/15/17 16:01 98.2 F 72 18 142/81 99 11/15/17 13:44 989.2 F H 69 17 145/76 98 Finger Stick Blood Glucose: 96 Medical Decision Making ED Course and Treatment: 11/17/17 07:37 Case endorsed to me by Dr. Rodriguez, [place] [facility] [place] 11/17/17 18:43 Still pending bed availability [place] [facility] [place] [facility] - Lab Interpretations Lab Results: 11/15/17 14:14 11/15/17 14:14 Lab Results 11/15/17 16:56: Urine Opiates Screen Negative, Urine Methadone Screen Negative, Ur Barbiturates Screen Negative, Ur Phencyclidine Scrn Positive H, Ur Amphetamines Screen Negative, U Benzodiazepines Scrn Negative, U Oth Cocaine Metabols Negative, U Cannabinoids Screen Negative 11/15/17 16:56: Urine Color Yellow, Urine Appearance Clear, Urine pH 6.0, Ur Specific [place] >= 1.030, Urine Protein Negative, Urine Glucose (UA) Negative, Urine Ketones Negative, Urine Blood Negative, Urine Nitrate Negative, Urine Bilirubin Negative, Urine Urobilinogen 0.2, Ur Leukocyte Esterase Negative 11/15/17 14:14: Alcohol, Quantitative < 10 11/15/17 14:14: Salicylates < 1 L, Acetaminophen < 10.0 L 11/15/17 14:14: Sodium 147, Potassium 3.9, Chloride 107, Carbon Dioxide 29, Anion Gap 15, BUN 14, Creatinine 0.9, Est GFR ( Amer) > 60, Est GFR (Non- Af Amer) > 60, Random Glucose 97, Calcium 8.8, Magnesium 2.5 H, Total Bilirubin < 0.1 L, AST 26, ALT 27, Alkaline Phosphatase 98, Total Protein 8.0, Albumin 4.0 , Globulin 4.0, Albumin/Globulin Ratio 1.0 L 11/15/17 14:14: WBC 13.0 H D, RBC 4.77, Hgb 13.4 L, Hct 40.5 L, MCV 84.9, MCH 28.1, MCHC 33.1, RDW 15.0 H, Plt Count 387, MPV 8.4, Gran % 73.4 H, Lymph % ( Auto) 16.8 L, [place] % (Auto) 6.2 H, Eos % (Auto) 3.1, Baso % (Auto) 0.5, Gran # 9.58 H, Lymph # (Auto) 2.2, [place] # (Auto) 0.8 H, Eos # (Auto) 0.4, Baso # (Auto ) 0.06 - RAD Interpretation Radiology Orders: 11/15/17 14:07 CHEST PORTABLE [RAD] Stat - Medication Orders Current Medication Orders: Lorazepam (Ativan) 2 mg IM Q6H PRN; Protocol PRN Reason: severe agitation Trazodone HCl (Desyrel) 50 mg PO HS PRN PRN Reason: Insomnia Ziprasidone (Geodon Inj) 20 mg IM Q6H PRN; Protocol PRN Reason: agitation/psychosis Discontinued Medications Albuterol/Ipratropium (Duoneb 3 Mg/0.5 Mg (3 Ml) Ud) 3 ml IH STAT STA Stop: 11/15/17 14:36 Last Admin: 11/15/17 14:43 Dose: 3 ml Guaifenesin/Dextromethorphan (Robitussin Dm) 10 ml PO ONCE ONE Stop: 11/15/17 14:36 Last Admin: 11/15/17 14:43 Dose: 10 ml Haloperidol Lactate (Haldol) 5 mg IM STAT STA PRN Reason: Protocol Stop: 11/16/17 14:35 Last Admin: 11/16/17 14:46 Dose: 5 mg IM Administration Charges Document 11/16/17 14:46 SZA (Rec: 11/16/17 14:46 SZA [id number]) Injection Site MAR Injection Site Right Deltoid Charges for Administration # of IM Administrations 1 Lorazepam (Ativan) 2 mg IM STAT STA PRN Reason: Protocol Stop: 11/16/17 14:36 Last Admin: 11/16/17 14:46 Dose: 2 mg IM Administration Charges Document 11/16/17 14:46 SZA (Rec: 11/16/17 14:46 SZA [id number]) Injection Site MAR Injection Site Left Deltoid Charges for Administration # of IM Administrations 1 Disposition/Present on Arrival - Present on Arrival Any Indicators Present on Arrival: No History of DVT/PE: No History of Uncontrolled Diabetes: No Urinary Catheter: No History of Decub. Ulcer: No History Surgical Site Infection Following: None - Disposition Have Diagnosis and Disposition been Completed?: No Diagnosis: Behavior disorder, Homeless, Schizoaffective disorder Disposition Time: 18:44 Patient Problems: Current Active Problems Problem Status Onset Behavior disorder Acute Homeless Acute Schizoaffective disorder Acute Condition: STABLE Print Language: BULGARIAN Referrals: [employer] Profile Req, [Non-Staff] - Follow up with primary Forms: [employer] (Malay)
[2017-11-17 13:02] VITALS: BP 132/76; PULSE 74; RESP 18; TEMP 98.3; O2SAT 96
--- NOTE | 2017-11-17 15:03 | PN ---
DATE: 11/17/2017 SUBJECTIVE: A 32-year-old male with not known previous psychiatric history. The patient has history of BCP use. The patient was brought in by police for evaluation of bizarre and disorganized wandering behavior in the community. The patient also acting irrationally, was trying to take his clothes off in public. The patient was offered psychiatric admission, but the patient refused. The patient was screened by [facility] for involuntary commitment. The patient was accepted by [facility] and the patient is awaiting for bed to be available. Yesterday, as per report, the patient was agitated. Ade Levy was called in the Emergency Room. The patient tried to awake at the present moment, the patient is on 1 to 1. The patient is poor and unreliable historian due to being high on drugs, also possible cognitive changes due to chronic use of drugs. There was no meaningful conversation possible with this patient. Yesterday, the patient was in catatonic stage, was giving only one-word answer. Today, the patient is more talkative, but at the same time irritable, not providing any information. The patient appears to be internally preoccupied and responding to internal stimuli. PHYSICAL EXAMINATION: VITAL SIGNS: Reviewed, seems to be stable. Pulse is 72, blood pressure 125/76, respirations 18, oxygen saturation is 98. Haldol and Ativan was given to the patient at 0234 yesterday. This was relatively good response. Labs reviewed. 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 The patient appears to be bizarre, responding to internal stimuli. Irritable. No eye contact, poor hygiene. Speech is under productive. Mood described as I want to go. Affect was constricted and irritable. Thought process disorganized. Thought content, the patient denied visual, auditory, tactile hallucinations. Denied paranoid ideation, but the patient presented to be psychotic and paranoid. Insight and judgment seems to be limited to impaired judgements as well. Impulses are unpredictable. 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 Rule out schizophrenia spectrum disorder, BCP use disorder. PLAN: The patient was screened by [facility]. At present moment, the patient is waiting for bed to be available. The patient is currently on one to one. Geodon and Ativan started as needed. Discussed with the Emergency room staff, RN and physician. Should they have any questions, give me a call back. Thank you very much for letting me participate in care of your patient. Ellen Moise MD
--- NOTE | 2017-11-17 20:07 | ED PDOC ---
Physical Exam Vital Signs Temp Pulse Resp BP Pulse Ox 11/17/17 11:00 98.3 F 74 18 132/76 96 11/17/17 09:00 98 F 80 16 128/79 97 11/17/17 06:49 72 18 125/76 98 11/17/17 03:49 70 17 114/68 98 11/17/17 00:49 68 17 120/70 98 11/16/17 22:49 65 18 126/75 96 11/16/17 18:45 69 18 116/68 96 11/16/17 14:30 72 18 117/71 99 11/16/17 12:50 66 18 112/77 98 11/16/17 11:00 60 16 117/62 99 11/16/17 08:00 98.2 F 80 18 119/77 99 11/16/17 06:03 88 16 129/80 98 11/16/17 02:54 82 18 137/82 99 11/15/17 19:05 78 16 148/69 100 11/15/17 16:01 98.2 F 72 18 142/81 99 11/15/17 13:44 989.2 F H 69 17 145/76 98 Finger Stick Blood Glucose: 96 Medical Decision Making ED Course and Treatment: 11/17/17 19:00 Case endorsed to me by Dr. Khalil, pending [place] transfer. 11/18/17 00:20 Pt agitated, combative with security staff. Code Rey called. Pt restrained in 4 points and given Geodon for sedation. - Lab Interpretations Lab Results: 11/15/17 14:14 11/15/17 14:14 Lab Results 11/15/17 16:56: Urine Opiates Screen Negative, Urine Methadone Screen Negative, Ur Barbiturates Screen Negative, Ur Phencyclidine Scrn Positive H, Ur Amphetamines Screen Negative, U Benzodiazepines Scrn Negative, U Oth Cocaine Metabols Negative, U Cannabinoids Screen Negative 11/15/17 16:56: Urine Color Yellow, Urine Appearance Clear, Urine pH 6.0, Ur Specific [place] >= 1.030, Urine Protein Negative, Urine Glucose (UA) Negative, Urine Ketones Negative, Urine Blood Negative, Urine Nitrate Negative, Urine Bilirubin Negative, Urine Urobilinogen 0.2, Ur Leukocyte Esterase Negative 11/15/17 14:14: Alcohol, Quantitative < 10 11/15/17 14:14: Salicylates < 1 L, Acetaminophen < 10.0 L 11/15/17 14:14: Sodium 147, Potassium 3.9, Chloride 107, Carbon Dioxide 29, Anion Gap 15, BUN 14, Creatinine 0.9, Est GFR ( Amer) > 60, Est GFR (Non- Af Amer) > 60, Random Glucose 97, Calcium 8.8, Magnesium 2.5 H, Total Bilirubin < 0.1 L, AST 26, ALT 27, Alkaline Phosphatase 98, Total Protein 8.0, Albumin 4.0 , Globulin 4.0, Albumin/Globulin Ratio 1.0 L 11/15/17 14:14: WBC 13.0 H D, RBC 4.77, Hgb 13.4 L, Hct 40.5 L, MCV 84.9, MCH 28.1, MCHC 33.1, RDW 15.0 H, Plt Count 387, MPV 8.4, Gran % 73.4 H, Lymph % ( Auto) 16.8 L, [place] % (Auto) 6.2 H, Eos % (Auto) 3.1, Baso % (Auto) 0.5, Gran # 9.58 H, Lymph # (Auto) 2.2, [place] # (Auto) 0.8 H, Eos # (Auto) 0.4, Baso # (Auto ) 0.06 - RAD Interpretation Radiology Orders: 11/15/17 14:07 CHEST PORTABLE [RAD] Stat - Medication Orders Current Medication Orders: Lorazepam (Ativan) 2 mg IM Q6H PRN; Protocol PRN Reason: severe agitation Trazodone HCl (Desyrel) 50 mg PO HS PRN PRN Reason: Insomnia Ziprasidone (Geodon Inj) 20 mg IM Q6H PRN; Protocol PRN Reason: agitation/psychosis Last Admin: 11/18/17 00:23 Dose: 20 mg IM Administration Charges Document 11/18/17 00:23 CNR (Rec: 11/18/17 00:23 CNR [id number]) Injection Site MAR Injection Site Left Deltoid Charges for Administration # of IM Administrations 1 Discontinued Medications Albuterol/Ipratropium (Duoneb 3 Mg/0.5 Mg (3 Ml) Ud) 3 ml IH STAT STA Stop: 11/15/17 14:36 Last Admin: 11/15/17 14:43 Dose: 3 ml Guaifenesin/Dextromethorphan (Robitussin Dm) 10 ml PO ONCE ONE Stop: 11/15/17 14:36 Last Admin: 11/15/17 14:43 Dose: 10 ml Haloperidol Lactate (Haldol) 5 mg IM STAT STA PRN Reason: Protocol Stop: 11/16/17 14:35 Last Admin: 11/16/17 14:46 Dose: 5 mg IM Administration Charges Document 11/16/17 14:46 SZA (Rec: 11/16/17 14:46 SZA [id number]) Injection Site MAR Injection Site Right Deltoid Charges for Administration # of IM Administrations 1 Lorazepam (Ativan) 2 mg IM STAT STA PRN Reason: Protocol Stop: 11/16/17 14:36 Last Admin: 11/16/17 14:46 Dose: 2 mg IM Administration Charges Document 11/16/17 14:46 SZA (Rec: 11/16/17 14:46 SZA [id number]) Injection Site MAR Injection Site Left Deltoid Charges for Administration # of IM Administrations 1 Disposition/Present on Arrival - Present on Arrival Any Indicators Present on Arrival: No History of DVT/PE: No History of Uncontrolled Diabetes: No Urinary Catheter: No History of Decub. Ulcer: No History Surgical Site Infection Following: None - Disposition Diagnosis: Behavior disorder, Homeless, Schizoaffective disorder Patient Problems: Current Active Problems Problem Status Onset Behavior disorder Acute Homeless Acute Schizoaffective disorder Acute Condition: STABLE Print Language: OCCITAN Referrals: [employer] Jenny Req, [Non-Staff] - Follow up with primary Forms: [employer] (Puerto Rican)
== END 2017-11-18 02:05 | disposition short-term general hospital (02) ==
LOC: ED 13:16
DX: F25.9 Schizoaffective disorder, unspecified (principal); F07.9 Unspecified personality and behavioral disorder due to known physiological condition; Z59.0 Homelessness
CPT/HCPCS: 71045; 80053; 80320; 80324; 80329; 80345; 80346; 80349; 80353; 80358; 80361; 81003; 83735; 83992; 85025; 90791; 93005; 96372; 99285; J1630; J2060; J3486

== ENCOUNTER 2017-12-22 20:02 | Emergency (ER) | payer MEDICAID, OTHER ==
[2017-12-22 20:02] VITALS: BMI 33.3
== END 2017-12-22 20:25 | disposition left against medical advice (07) ==
LOC: ED 20:02
DX: Z02.89 Encounter for other administrative examinations (principal); Z00.00 Encounter for general adult medical examination without abnormal findings

== ENCOUNTER 2018-01-12 09:34 | Emergency (ER) | payer OTHER ==
[2018-01-12 09:58] VITALS: RESP 18
[2018-01-12 10:03] VITALS: BMI 30.7
--- NOTE | 2018-01-12 11:30 | ED PDOC ---
Arrival/HPI - General Chief Complaint: Alcohol Ingestion Time Seen by Provider: 01/12/18 09:47 Historian: Patient, EMS - History of Present Illness Narrative History of Present Illness (Text): 01/12/18 11:26 A 32 year old male brought into the emergency department by EMS for alcohol intoxication. Patient admits to drinking alcohol today. Patient denies any injury, trauma, fever, chills, nausea, vomiting, abdominal pain, chest pain, shortness of breath, suicidal ideation, homicidal ideation or any other complaints. HPI and ROS limited. Past Medical History - Provider Review Nursing Documentation Reviewed: Yes - Past History Past History: No Previous - Infectious Disease Hx of Infectious Diseases: None - Tetanus Immunization Tetanus Immunization: Unknown - Cardiac Hx Hypertension: No - Pulmonary Hx Tuberculosis: No - Neurological Hx Seizures: No - Hematological/Oncological Hx Cancer: No - Genitourinary/Gynecological Hx Sexually Transmitted Diseases: No - Psychiatric Hx Schizophrenia: Yes Hx Substance Use: No - Surgical History Other/Comment: STITCHES ON NOSE/ HEAD - DONT REMEMBER ANY SUGERY - Anesthesia Hx Anesthesia: Yes Hx Anesthesia Reactions: No Hx Malignant Hyperthermia: No Family/Social History - Physician Review Nursing Documentation Reviewed: Yes Family/Social History: No Known Family HX Smoking Status: Former Smoker Hx Alcohol Use: No Hx Substance Use: No Hx Substance Use Treatment: No Allergies/Home Meds Allergies/Adverse Reactions: Allergies No Known Allergies Allergy (Verified 01/12/18 10:03) Home Medications: Home Meds Medication Instructions Recorded Confirmed Unobtainable 12/09/17 01/12/18 Review of Systems - Review of Systems Systems not reviewed;Unavailable: Intoxicated Physical Exam Vital Signs Reviewed: Yes Vital Signs Temp Pulse Resp BP Pulse Ox 01/12/18 15:52 98.4 F 72 18 128/87 98 01/12/18 11:30 98.3 F 76 18 99 01/12/18 09:57 98.9 F 73 18 104/65 98 Temperature: Afebrile Blood Pressure: Normal Pulse: Regular Respiratory Rate: Normal Appearance: Positive for: Well-Appearing, Non-Toxic, Comfortable Pain Distress: None Mental Status: Positive for: Alert and Oriented X 3 - Systems Exam Head: Present: Atraumatic, Normocephalic Pupils: Present: PERRL Extroacular Muscles: Present: EOMI Conjunctiva: Present: Normal Mouth: Present: Moist Mucous Membranes Neck: Present: Normal Range of Motion Respiratory/Chest: Present: Clear to Auscultation, Good Air Exchange. No: Respiratory Distress, Accessory Muscle Use Cardiovascular: Present: Regular Rate and Rhythm, Normal S1, S2. No: Murmurs Abdomen: Present: Normal Bowel Sounds. No: Tenderness, Distention, Peritoneal Signs Back: Present: Normal Inspection Upper Extremity: Present: Normal Inspection. No: Cyanosis, Edema Lower Extremity: Present: Normal Inspection. No: Edema Skin: Present: Warm, Dry, Normal Color. No: Rashes Psychiatric: Present: Intoxicated Medical Decision Making ED Course and Treatment: 01/12/18 11:26 Impression: A 32 year old male brought in for alcohol intoxication. Plan is to observe pending sobriety. Differential Diagnosis included but are not limited to: Alcohol intoxication Plan: -- ED observation -- Reassess and disposition Progress Notes: - Scribe Statement The provider has reviewed the documentation as recorded by the Eribertoibavtar Ray Provider Scribe Attestation: All medical record entries made by the Scribe were at my direction and personally dictated by me. I have reviewed the chart and agree that the record accurately reflects my personal performance of the history, physical exam, medical decision making, and the department course for this patient. I have also personally directed, reviewed, and agree with the discharge instructions and disposition. Disposition/Present on Arrival - Present on Arrival Any Indicators Present on Arrival: No History of DVT/PE: No History of Uncontrolled Diabetes: No Urinary Catheter: No History of Decub. Ulcer: No History Surgical Site Infection Following: None - Disposition Have Diagnosis and Disposition been Completed?: Yes Diagnosis: Alcohol intoxication Disposition: HOME/ ROUTINE Disposition Time: 12:00 Condition: IMPROVED Discharge Instructions (ExitCare): Alcohol Abuse and Alcoholism (DC) Additional Instructions: ANNITA MANN, thank you for letting us take care of you today. The emergency medical care you received today was directed at your acute symptoms. If you were prescribed any medication, please fill it and take as directed. It may take several days for your symptoms to resolve. Return to the Emergency Department if your symptoms worsen, do not improve, or if you have any other problems. Please contact your doctor or call one of the physicians/clinics you have been referred to that are listed on the Patient Visit Information form that is included in your discharge packet. Bring any paperwork you were given at discharge with you along with any medications you are taking to your follow up visit. Our treatment cannot replace ongoing medical care by a primary care provider outside of the emergency department. Thank you for allowing the [facility] team to be part of your care today. Follow up with your primary doctor in 3-4 days for re-evaluation. Referrals: [facility] [Outside] - Follow up with primary [facility] [place] [Outside] - Follow up with primary Forms: [employer] (Amharic)
[2018-01-12 15:54] VITALS: BP 128/87; PULSE 72; TEMP 98.4; O2SAT 98
== END 2018-01-12 15:54 | disposition home or self-care (01) ==
LOC: ED 09:34
DX: F10.129 Alcohol abuse with intoxication, unspecified (principal)

== ENCOUNTER 2018-01-12 20:15 | Emergency (ER) | payer OTHER ==
[2018-01-12 20:28] VITALS: BMI 73.3
[2018-01-12 20:32] VITALS: RESP 18; TEMP 98.2
--- NOTE | 2018-01-12 23:27 | ED PDOC ---
Arrival/HPI - General Chief Complaint: Medical Clearance Time Seen by Provider: 01/12/18 20:17 Historian: Patient - History of Present Illness Narrative History of Present Illness (Text): 01/12/18 20:28 32 year old male, with past history of alcohol abuse, presents to the Emergency department for a place to stay tonight. Patient was seen in the ED earlier today for alcohol intoxication and was later discharged after reaching sobriety. Patient admits to drinking today and states he just wants a place to stay. Patient denies any medical complaints. Patient denies any fever, chills, nausea, vomiting, diarrhea, abdominal pain, chest pain, shortness of breath or any other complaints. Patient denies any suicidal or homicidal ideation. Time/Duration: Prior to Arrival Symptom Onset: Gradual Symptom Course: Improving Activities at Onset: Light Context: Street Past Medical History - Provider Review Nursing Documentation Reviewed: Yes - Past History Past History: No Previous - Infectious Disease Hx of Infectious Diseases: None - Tetanus Immunization Tetanus Immunization: Unknown - Cardiac Hx Hypertension: No - Pulmonary Hx Tuberculosis: No - Neurological Hx Seizures: No - Hematological/Oncological Hx Cancer: No - Genitourinary/Gynecological Hx Sexually Transmitted Diseases: No - Psychiatric Hx Schizophrenia: Yes Hx Substance Use: No - Surgical History Other/Comment: STITCHES ON NOSE/ HEAD - DONT REMEMBER ANY SUGERY - Anesthesia Hx Anesthesia: Yes Hx Anesthesia Reactions: No Hx Malignant Hyperthermia: No Family/Social History - Physician Review Nursing Documentation Reviewed: Yes Family/Social History: No Known Family HX Smoking Status: Former Smoker Hx Alcohol Use: No Hx Substance Use: No Hx Substance Use Treatment: No Allergies/Home Meds Allergies/Adverse Reactions: Allergies No Known Allergies Allergy (Verified 01/12/18 10:03) Home Medications: Home Meds Medication Instructions Recorded Confirmed Unobtainable 12/09/17 01/12/18 Review of Systems - Physician Review All systems were reviewed & negative as marked: Yes - Review of Systems Constitutional: Normal. absent: Fevers Eyes: Normal ENT: Normal Respiratory: Normal. absent: SOB Cardiovascular: Normal. absent: Chest Pain Gastrointestinal: Normal. absent: Abdominal Pain, Diarrhea, Nausea, Vomiting Genitourinary Male: Normal Musculoskeletal: Normal Skin: Normal Neurological: Normal Endocrine: Normal Hemo/Lymphatic: Normal Psychiatric: Normal. absent: Suicidal Ideation Physical Exam Vital Signs Reviewed: Yes Vital Signs Temp Pulse Resp BP Pulse Ox 01/13/18 06:12 80 18 126/82 100 01/13/18 04:00 79 18 121/78 100 01/13/18 00:15 75 18 125/62 100 01/12/18 20:28 98.2 F 78 18 128/74 99 Temperature: Afebrile Blood Pressure: Normal Pulse: Regular Respiratory Rate: Normal Appearance: Positive for: Well-Appearing, Other (Alcohol smell at breath) Pain Distress: None Mental Status: Positive for: Alert and Oriented X 3 - Systems Exam Head: Present: Atraumatic, Normocephalic Pupils: Present: PERRL Extroacular Muscles: Present: EOMI Conjunctiva: Present: Normal Mouth: Present: Moist Mucous Membranes Neck: Present: Normal Range of Motion Respiratory/Chest: Present: Clear to Auscultation, Good Air Exchange. No: Respiratory Distress, Accessory Muscle Use Cardiovascular: Present: Regular Rate and Rhythm, Normal S1, S2. No: Murmurs Abdomen: No: Tenderness, Distention, Peritoneal Signs Back: Present: Normal Inspection Upper Extremity: Present: Normal Inspection. No: Cyanosis, Edema Lower Extremity: Present: Normal Inspection. No: Edema Neurological: Present: GCS=15, CN II-XII Intact, Speech Normal Skin: Present: Warm, Dry, Normal Color. No: Rashes Psychiatric: Present: Alert, Oriented x 3, Normal Insight, Normal Concentration. No: Suicidal Ideation, Homicidal Ideation Medical Decision Making ED Course and Treatment: 01/12/18 20:28 Impression: 32 year old male [facility]. Differential Diagnosis included but are not limited to: alcohol intoxication Plan: -- EKG -- Labs -- Chest X-ray -- Urinalysis -- Reassess and disposition Prior Visits: Notes and results from previous visits were reviewed. Progress Notes: - RAD Interpretation Radiology Orders: 01/12/18 20:39 CHEST PORTABLE [RAD] Stat - Scribe Statement The provider has reviewed the documentation as recorded by the Scribe Favian Anglin. All medical record entries made by the Scribe were at my direction and personally dictated by me. I have reviewed the chart and agree that the record accurately reflects my personal performance of the history, physical exam, medical decision making, and the department course for this patient. I have also personally directed, reviewed, and agree with the discharge instructions and disposition. Disposition/Present on Arrival - Present on Arrival Any Indicators Present on Arrival: No History of DVT/PE: No History of Uncontrolled Diabetes: No Urinary Catheter: No History of Decub. Ulcer: No History Surgical Site Infection Following: None - Disposition Have Diagnosis and Disposition been Completed?: Yes Diagnosis: Alcohol abuse Disposition: HOME/ ROUTINE Disposition Time: 06:30 Condition: GOOD Forms: [employer] (Comoran)
[2018-01-13 04:34] VITALS: O2SAT 100
[2018-01-13 06:13] VITALS: BP 126/82; PULSE 80
--- NOTE | 2018-01-13 11:39 | RAD ---
HISTORY: PES COMPARISON: 11/15/2017 FINDINGS: LUNGS: No active pulmonary disease. PLEURA: No significant pleural effusion identified, no pneumothorax apparent. CARDIOVASCULAR: Cardiomegaly No radiographic findings to suggest acute or significant cardiovascular disease. OSSEOUS STRUCTURES: No significant abnormalities. VISUALIZED UPPER ABDOMEN: Normal. OTHER FINDINGS: None. IMPRESSION: No active disease. No significant interval change compared to the prior examination(s).
== END 2018-01-13 06:13 | disposition home or self-care (01) ==
LOC: ED 20:15
DX: F10.10 Alcohol abuse, uncomplicated (principal)